=== PATIENT | female | born 1995 | race Hispanic/Latino ===

== ENCOUNTER 2021-02-01 14:48 | Outpatient (CLI) | payer OTHER ==
[2021-02-02 21:37] LABS: SARS-CoV-2 PCR by NAA Not Detected (NotDetected)
== END 2021-02-01 14:49 | disposition home or self-care (01) ==
LOC: CSHLAB 14:48
PROVIDERS: ATTEND Surgery
DX: Z20.822 Contact with and (suspected) exposure to COVID-19 (principal)
CPT/HCPCS: U0003; U0005